=== PATIENT | female | born 1980 | race Hispanic/Latino ===

== ENCOUNTER 2021-07-28 09:19 | Emergency (ER) | payer SELFPAY ==
[~2021-07-28] VITALS: Ht 165.1 cm; Wt 77.2 kg
[2021-07-28 10:27] LABS: HEMOGLOBIN 13.9 g/dl (12.0-16.0); IMMATURE GRANULOCYTES 0.2 % (0.0-5.0); MEAN CELL VOLUME 84.8 fL CALC (80.0-100.0); MEAN CORPUSCULAR HGB 27.4 pG CALC (26.0-32.0); MEAN CORPUSCULAR HGB CONC 32.3 g/dL CAL (32.0-36.0); NEUT# 3.69 thou/uL (2.00-7.15); RED BLOOD COUNT 5.07 mill/uL (4.20-5.60); RED CELL DISTRI WIDTH 13.5 % (11.5-15.5)
[2021-07-28 10:46] LABS: ALBUMIN 4.5 g/dL (3.2-5.0); ALKALINE PHOSPHATASE 87 u/l (38-126); ANION GAP 11 (6-22 (CALC)); BILIRUBIN, TOTAL 0.7 mg/dL (0.0-1.4); BUN 10 mg/dL (7-17); BUN/CREATININE RATIO 14 (12-20 (CALC)); CARBON DIOXIDE 29 mmol/l (22-30); CHLORIDE 101 mmol/l (95-108); CREATININE 0.7 mg/dL (0.5-1.0); GFR > 60 ML/MIN (>=60 (CALC)); GFR FOR AFR.AMER. > 60 ML/MIN (>=60 (CALC)); POTASSIUM 3.2 mmol/l (3.5-5.1); SGOT/AST 28 u/l (14-36); SODIUM 138 mmol/l (137-146); TOTAL PROTEIN 8.2 g/dL (6.3-8.2)
[2021-07-28 10:54] LABS: MYOGLOBIN 23 ng/mL (0 - 62)
[2021-07-28 11:45] LABS: URINE BILIRUBIN - DIPSTICK NEGATIVE (NEGATIVE); URINE BLOOD DIPSTICK NEGATIVE (NEGATIVE); URINE COLOR YELLOW; URINE GLUCOSE - DIPSTICK NEGATIVE (NEGATIVE); URINE KETONE NEGATIVE (NEGATIVE); URINE LEUK ESTERASE NEGATIVE (NEGATIVE); URINE PH 6.5 (4.5-8.0); URINE PROTEIN - DIPSTICK NEGATIVE (NEG-TRACE); URINE SPECIFIC GRAVITY 1.015; URINE UROBILINOGEN - DIPSTICK 0.2 E.U./dL (0.2)
[2021-07-28 11:46] LABS: URINE NITRITE - DIPSTICK NEGATIVE (Negative)
[2021-07-28] MEDS ORDERED: FIORICET PO (12:38)
[2021-07-28 12:45] VITALS: BP 152/95
== END 2021-07-28 12:45 | disposition home or self-care (01) | DRG 305 ==
LOC: ED 09:19
PROVIDERS: Emergency Medicine
DX: I10 Essential (primary) hypertension (principal); Z91.14 Patient's other noncompliance with medication regimen; Z20.822 Contact with and (suspected) exposure to COVID-19

== ENCOUNTER 2021-08-02 18:31 | Emergency (ER) | payer SELFPAY ==
[~2021-08-02] VITALS: Ht 165.1 cm; Wt 68.0 kg
[~2021-08-02 18:31] MED LIST: FIORICET PO
[2021-08-02 19:33] LABS: HEMATOCRIT 42.8 % (37.0-47.0); HEMOGLOBIN 14.2 g/dl (12.0-16.0); IMMATURE GRANULOCYTES 0.1 % (0.0-5.0); MEAN CELL VOLUME 83.8 fL CALC (80.0-100.0); MEAN CORPUSCULAR HGB 27.8 pG CALC (26.0-32.0); MEAN CORPUSCULAR HGB CONC 33.2 g/dL CAL (32.0-36.0); NEUT# 3.95 thou/uL (2.00-7.15); RED BLOOD COUNT 5.11 mill/uL (4.20-5.60); RED CELL DISTRI WIDTH 13.4 % (11.5-15.5)
[2021-08-02 19:48] LABS: ALBUMIN 4.7 g/dL (3.2-5.0); ALKALINE PHOSPHATASE 77 u/l (38-126); ANION GAP 14 (6-22 (CALC)); BILIRUBIN, TOTAL 0.4 mg/dL (0.0-1.4); BUN 10 mg/dL (7-17); BUN/CREATININE RATIO 15 (12-20 (CALC)); CARBON DIOXIDE 25 mmol/l (22-30); CHLORIDE 103 mmol/l (95-108); CREATININE 0.7 mg/dL (0.5-1.0); GFR > 60 ML/MIN (>=60 (CALC)); GFR FOR AFR.AMER. > 60 ML/MIN (>=60 (CALC)); POTASSIUM 3.5 mmol/l (3.5-5.1); SGOT/AST 30 u/l (14-36); SODIUM 138 mmol/l (137-146); TOTAL PROTEIN 8.1 g/dL (6.3-8.2)
[2021-08-02] MEDS ORDERED: LISINOPRIL10 MG PO (19:57)
[2021-08-02 19:59] VITALS: BP 161/99
== END 2021-08-02 20:02 | disposition home or self-care (01) | DRG 305 ==
LOC: ED 18:31
PROVIDERS: Emergency Medicine
DX: I10 Essential (primary) hypertension (principal)

== ENCOUNTER 2021-08-04 13:59 | Emergency (ER) | payer SELFPAY ==
[~2021-08-04] VITALS: Ht 165.1 cm; Wt 68.0 kg
[~2021-08-04 13:59] MED LIST changes: +LISINOPRIL10 MG PO
[2021-08-04 15:57] LABS: HEMATOCRIT 42.7 % (37.0-47.0); IMMATURE GRANULOCYTES 0.2 % (0.0-5.0); MEAN CELL VOLUME 84.2 fL CALC (80.0-100.0); MEAN CORPUSCULAR HGB 27.6 pG CALC (26.0-32.0); MEAN CORPUSCULAR HGB CONC 32.8 g/dL CAL (32.0-36.0); NEUT# 3.43 thou/uL (2.00-7.15); RED BLOOD COUNT 5.07 mill/uL (4.20-5.60); RED CELL DISTRI WIDTH 13.5 % (11.5-15.5)
[2021-08-04 16:22] LABS: ALBUMIN 4.5 g/dL (3.2-5.0); ALKALINE PHOSPHATASE 75 u/l (38-126); ANION GAP 9 (6-22 (CALC)); BILIRUBIN, TOTAL 0.5 mg/dL (0.0-1.4); BUN 9 mg/dL (7-17); BUN/CREATININE RATIO 13 (12-20 (CALC)); CARBON DIOXIDE 28 mmol/l (22-30); CHLORIDE 106 mmol/l (95-108); CREATININE 0.7 mg/dL (0.5-1.0); GFR > 60 ML/MIN (>=60 (CALC)); GFR FOR AFR.AMER. > 60 ML/MIN (>=60 (CALC)); POTASSIUM 3.3 mmol/l (3.5-5.1); SGOT/AST 35 u/l (14-36); SODIUM 139 mmol/l (137-146)
[2021-08-04 17:05] VITALS: BP 153/99
[2021-08-04] MEDS ORDERED: LISINOPRIL40 MG PO (17:15)
[2021-08-04] MEDS ORDERED: NORVASC5 M1 PO (17:15)
[2021-08-04] MEDS ORDERED: K-TAB20 MEQ PO (17:25)
== END 2021-08-04 17:47 | disposition home or self-care (01) | DRG 305 ==
LOC: ED 13:59
PROVIDERS: Family Medicine
DX: I10 Essential (primary) hypertension (principal); E66.9 Obesity, unspecified
CPT/HCPCS: Q9967

== ENCOUNTER 2025-01-08 19:33 | Emergency (ER) | payer OTHER ==
[~2025-01-08] VITALS: Ht 165.1 cm; Wt 65.0 kg
[~2025-01-08 19:33] MED LIST changes: +K-TAB20 MEQ PO; +LISINOPRIL40 MG PO; +NORVASC5 M1 PO
[2025-01-08 19:56] VITALS: BP 176/127
[2025-01-08 20:00] VITALS: BP 164/108
[2025-01-08] MEDS ORDERED: methylPREDNISolone Sod Succ 40 MG/ML SDV IM ONE (20:15)
[2025-01-08 20:30] VITALS: BP 144/98
[2025-01-08] MEDS ORDERED: PREDNISONE50 MG PO (20:50)
[2025-01-08 21:16] VITALS: BP 144/98
== END 2025-01-08 21:16 | disposition home or self-care (01) | DRG 74 ==
LOC: ED 19:33
DX: G51.0 Bell's palsy (principal); I10 Essential (primary) hypertension